=== PATIENT | female | born 1970 | race Two or more races ===

== ENCOUNTER 2016-12-31 07:20 | Emergency (ER) | payer BC, OTHER ==
--- NOTE | ~2016-12-31 | CR72 ---
[facility] A Service of [facility] RADIOLOGY TEXT RESULTS PATIENT: ALANNA KILGORE LOCATION: [facility] : 70 UNIT #: [id number] AGE: [address]: Lenin Forrest MD SEX: F ORDER DR: [id number] [facility] [address] [place], [place] [address] [id number] E MR#: [id number] Acc #: [id number] NAME: ALANNA KILGORE : 1970 SEX: F STUDY DATE/TIME: 12/31/2016 7:32 UNIT: [facility] ROOM: STUDY DESCRIPTION: CR Chest Single View Portable Attending Physician: Michael Forrest M.D. Ordering Physician: Ed Luis Rubin M.D. Primary Care Physician: Fabio Gordon M.D. MEDICAL IMAGING REPORT This report is preliminary unless electronic signature is present EXAM Single-view of the chest dated 12/31/2016 COMPARISON Chest 2 views dated 05/15/2010. HISTORY Shortness of air for 1 day. FINDINGS A single view of the chest was obtained. No patchy dense consolidation, pleural effusion, or pneumothorax. Mild prominence of the bronchovascular markings is probably better seen due to the technique. Minimal congestion cannot be completely excluded clinically. Heart is of normal size. Bones are unremarkable except for mild degenerative changes in the thoracic spine. Dictated by... Aaliyah Armenta M.D. THIS IS AN ELECTRONICALLY VERIFIED REPORT Aaliyah Armenta M.D. at 12/31/2016 3:49 PM CPR/aa TD: 12/31/2016 08:46 JOB #: [id number] MEDICAL IMAGING REPORT Page 1 of 1 COPY
--- NOTE | ~2016-12-31 | EKG ---
PATIENT: ALANNA KILGORE UNIT #: [id number] Ventricular Rate: 93 BPM Atrial Rate: 93 BPM P-R Interval: 122 ms QRS Duration: 74 ms Q-T Interval: 368 ms QTC Calculation(Bezet): 457 ms P [place]: 62 degrees Calculated R [place]: 40 degrees Calculated T [place]: 21 degrees Diagnosis Line: Normal sinus rhythm Diagnosis Line: Normal ECG Diagnosis Line: No previous ECGs available Diagnosis Line: Confirmed by ROSIE GALAN MD ([id number]) on Diagnosis Line: 12/31/2016 9:35:42 PM INTERPRETING MD: BENITO
--- NOTE | ~2016-12-31 | CT16 ---
[facility] A Service of [facility] RADIOLOGY TEXT RESULTS PATIENT: ALANNA KILGORE LOCATION: [facility] : 70 UNIT #: [id number] AGE: [address]: Lenin Forrest MD SEX: F ORDER DR: [id number] [facility] [address] [place], [place] [address] [id number] E MR#: [id number] Acc #: [id number] NAME: ALANNA KILGORE : 1970 SEX: F STUDY DATE/TIME: 12/31/2016 9:38 UNIT: [facility] ROOM: STUDY DESCRIPTION: CT Angio Chest for PE Attending Physician: Michael Forrest M.D. Ordering Physician: Michael Forrest M.D. Primary Care Physician: Fabio Gordon M.D. MEDICAL IMAGING REPORT This report is preliminary unless electronic signature is present EXAM CTA chest INDICATION Chest pain, shortness of air, upper back pain for 2 days. Elevated D-dimer. TECHNIQUE CT angiography of the chest utilizing 80 mL Isovue-370 IV contrast. Coronal 3-D MIP reconstructions and standard sagittal reconstructions were obtained. This CT exam was performed with one or more of the following radiation dose reduction techniques: automatic exposure control, adjustment of mA and/or kV according to patient size, and iterative reconstruction. COMPARISON Chest radiograph 12/31/[address] chest 09/10/2006. FINDINGS No pulmonary embolus. No thoracic aortic aneurysm or dissection. There are some ground-glass opacities in the perihilar regions of both lungs, predominately in the lower lobes. Patient also has small bilateral pleural effusions and some increased interstitial thickening. The overall constellation of findings is most supportive for mild interstitial edema and congestive heart failure. Central airways are patent. There is borderline enlargement of the main pulmonary artery measuring 3.2 cm. No pericardial effusion. There is a benign cyst in the superior right kidney. No hydronephrosis. IMPRESSION [facility] A Service of [facility] RADIOLOGY TEXT RESULTS PATIENT: ALANNA KILGORE LOCATION: [facility] : 70 UNIT #: [id number] AGE: [address]: Lenin Forrest MD SEX: F ORDER DR: 1. Negative for pulmonary embolus. 2. Perihilar ground-glass densities, mild interstitial thickening, and small bilateral pleural effusions. The constellation of findings suggests mild interstitial edema and congestive heart failure. Atypical pneumonia is considered less likely. Dictated by... Irvin Pérez M.D. THIS IS AN ELECTRONICALLY VERIFIED REPORT Irvin Pérez M.D. at 12/31/2016 11:32 AM Walt TD: 12/31/2016 10:52 JOB #: [id number] MEDICAL IMAGING REPORT Page 1 of 1 COPY
[~2016-12-31 07:20] MED LIST: ALBUTEROL17 G1 IH; CLARITIN10 MG PO; DESYREL100 MG PO; FLEXERIL PO; IBUPROFEN PO; KCL PO; ORUDIS75 M1 PO; PERCOCET PO; VICODIN 5/500 T1 TAB PO; ZESTORETIC 10/11 TAB PO
[2016-12-31 08:03] LABS: POC - CKMB <1.0 ng/mL (0.0-7.9); POC - TROPONIN <0.05 ng/mL (<=0.05)
[2016-12-31 08:07] LABS: BASOPHIL# 0.1 X10e3 (0-0.3); BASOPHIL% 0.6 % (0-2.5); EOSINOPHIL# 0.3 X10e3 (0-0.7); EOSINOPHIL% 2.4 % (0.0-7.0); HEMATOCRIT 26.4 % (35.0-45.0); HEMOGLOBIN 8.1 gm/dL (12.0-16.0); LYMPHOCYTE# 1.5 X10e3 (1.0-3.5); LYMPHOCYTE% 13.8 % (17.0-45.0); MEAN CELL VOLUME 67.4 FL (83-96); MEAN CORPUSCULAR HEMOGLOBIN 20.7 PG (28-34); MEAN CORPUSCULAR HGB CONC 30.8 g/dL (30-36); MEAN PLATELET VOLUME 8.3 FL (6.5-11.5); MONOCYTE# 0.9 X10e3 (0-1.0); MONOCYTE% 7.8 % (3.0-12.0); NEUTROPHIL# 8.5 X10e3 (1.5-7.1); NEUTROPHIL% 75.4 % (40-75); PLATELET COUNT 314 X10e3 (140-420); RED BLOOD COUNT 3.92 X10e (3.90-5.30); RED CELL DISTRIBUTION WIDTH 18.3 % (11.0-15.5); WHITE BLOOD COUNT 11.3 X10e3 (4.0-10.5)
[2016-12-31 08:11] LABS: DIFF IND NO
[2016-12-31 08:16] LABS: INFLUENZA A NEG (NEG); INFLUENZA B NEG (NEG)
[2016-12-31 08:29] LABS: ALBUMIN SERUM 2.9 g/dL (3.5-5.0); BILIRUBIN, DIRECT 0.1 mg/dL (0.0-0.2); BILIRUBIN,INDIRECT 0.7 mg/dL (0.0-0.9); BILIRUBIN,TOTAL 0.8 mg/dL (0.2-2.0); BUN/CREATININE RATIO 11.25; CALCIUM SERUM 8.2 mg/dL (8.4-10.2); CREATININE SERUM 0.8 mg/dL (0.6-1.4); GLOM FILT RATE Estimated 88.5 mL/min (>60); POTASSIUM 3.8 mmol/L (3.5-5.1); PROTEIN TOTAL SERUM 6.6 g/dL (6.0-8.3)
[2016-12-31 11:55] LABS: URINE SOURCE CLEAN CATCH
[2016-12-31 12:06] LABS: URINE APPEARANCE CLEAR; URINE BILIRUBIN NEG (NEG); URINE BLOOD NEG (NEG); URINE COLOR YELLOW; URINE GLUCOSE NEG (NEG); URINE KETONE NEG (NEG); URINE LEUKOCYTE ESTERASE NEG (NEG); URINE NITRATE NEG (NEG); URINE PROTEIN NEG (NEG); URINE SPECIFIC GRAVITY 1.005 (1.003-1.035); URINE UROBILINOGEN 0.2 MG/DL (NEG)
[2016-12-31 12:18] LABS: CULTURE INDICATED? NO
== END 2016-12-31 13:05 | disposition home or self-care (01) ==
LOC: CED 07:20
PROVIDERS: Emergency Medicine
DX: D64.9 Anemia, unspecified (principal); R05 Cough; R06.02 Shortness of breath; R09.81 Nasal congestion; E78.5 Hyperlipidemia, unspecified; I10 Essential (primary) hypertension; Z86.73 Personal history of transient ischemic attack (TIA), and cerebral infarction without residual deficits; Z88.0 Allergy status to penicillin
CPT/HCPCS: 36415; 71010; 71275; 80048; 80076; 81003; 82553; 83880; 84484; 85025; 85379; 87804; 93005; 99284; Q9967

== ENCOUNTER 2017-04-10 09:40 | Emergency (ER) | payer BC ==
--- NOTE | ~2017-04-10 | EKG ---
PATIENT: ALANNA KILGORE UNIT #: [id number] Ventricular Rate: 62 BPM Atrial Rate: 62 BPM P-R Interval: 142 ms QRS Duration: 76 ms Q-T Interval: 448 ms QTC Calculation(Bezet): 454 ms P [place]: 59 degrees Calculated R [place]: 39 degrees Calculated T [place]: 48 degrees Diagnosis Line: Normal sinus rhythm Diagnosis Line: Normal ECG Diagnosis Line: When compared with ECG of 31-DEC-2016 07:56, Diagnosis Line: Vent. rate has decreased BY 31 BPM Diagnosis Line: Nonspecific T wave abnormality no longer evident Diagnosis Line: in Inferior leads Diagnosis Line: Confirmed by BECCA MCKOY MD ([id number]) on Diagnosis Line: 04/12/2017 8:55:36 AM INTERPRETING MD: LEELEE COVINGTON
--- NOTE | ~2017-04-10 | CR72 ---
[facility] A Service of [facility] RADIOLOGY TEXT RESULTS PATIENT: ALANNA KILGORE LOCATION: [facility] : 70 UNIT #: [id number] AGE: [address]: Luis F Wesley MD SEX: F ORDER DR: [id number] [facility] [address] [place], [place] [address] [id number] E MR#: [id number] Acc #: [id number] NAME: ALANNA KILGORE : 1970 SEX: F STUDY DATE/TIME: 04/10/2017 10:18 UNIT: [facility] ROOM: STUDY DESCRIPTION: CR Chest Single View Portable Attending Physician: Luis F Wesley M.D. Ordering Physician: [id number] Anayeli Wesley Primary Care Physician: Fabio Gordon M.D. MEDICAL IMAGING REPORT This report is preliminary unless electronic signature is present EXAM Portable chest HISTORY Chest pain starting today with shortness of air. COMPARISON 12/31/2016 FINDINGS This portable view of the chest shows no active disease. The heart size and vascularity are normal. The lungs are clear and the bones are normal. Dictated by... Nam Ramirez M.D. THIS IS AN ELECTRONICALLY VERIFIED REPORT Nam Ramirez M.D. at 04/11/2017 9:35 PM ROSIE/gordon TD: 04/11/2017 00:20 JOB #: [id number] MEDICAL IMAGING REPORT Page 1 of 1 COPY
[2017-04-10 11:03] LABS: BASOPHIL# 0.1 X10e3 (0-0.3); BASOPHIL% 0.8 % (0-2.5); EOSINOPHIL# 0.1 X10e3 (0-0.7); EOSINOPHIL% 0.8 % (0.0-7.0); HEMATOCRIT 28.6 % (35.0-45.0); HEMOGLOBIN 9.1 gm/dL (12.0-16.0); LYMPHOCYTE# 1.3 X10e3 (1.0-3.5); LYMPHOCYTE% 16.7 % (17.0-45.0); MEAN CORPUSCULAR HEMOGLOBIN 22.3 PG (28-34); MEAN CORPUSCULAR HGB CONC 31.8 g/dL (30-36); MEAN PLATELET VOLUME 7.7 FL (6.5-11.5); MONOCYTE# 0.6 X10e3 (0-1.0); MONOCYTE% 7.8 % (3.0-12.0); NEUTROPHIL# 5.6 X10e3 (1.5-7.1); NEUTROPHIL% 73.9 % (40-75); PLATELET COUNT 365 X10e3 (140-420); RED BLOOD COUNT 4.09 X10e (3.90-5.30); RED CELL DISTRIBUTION WIDTH 17.2 % (11.0-15.5); WHITE BLOOD COUNT 7.6 X10e3 (4.0-10.5)
[2017-04-10 11:05] LABS: POC - CKMB <1.0 ng/mL (0.0-7.9); POC - TROPONIN <0.05 ng/mL (<=0.05)
[2017-04-10 11:13] LABS: PROTHROMBIN TIME (PATIENT) 10.5 SECONDS (10.0-11.7)
[2017-04-10 11:14] LABS: DIFF IND NO
[2017-04-10 11:39] LABS: ALBUMIN SERUM 3.4 g/dL (3.5-5.0); BILIRUBIN, DIRECT 0.1 mg/dL (0.0-0.2); BILIRUBIN,INDIRECT 0.9 mg/dL (0.0-0.9); CALCIUM SERUM 8.5 mg/dL (8.4-10.2); CREATININE SERUM 0.8 mg/dL (0.6-1.4); GLOM FILT RATE Estimated 88.5 mL/min (>60); PROTEIN TOTAL SERUM 7.2 g/dL (6.0-8.3)
== END 2017-04-10 12:35 | disposition home or self-care (01) ==
LOC: CED 09:40
PROVIDERS: Emergency Medicine
DX: R06.02 Shortness of breath (principal); M54.9 Dorsalgia, unspecified; E87.6 Hypokalemia; I10 Essential (primary) hypertension; Z86.73 Personal history of transient ischemic attack (TIA), and cerebral infarction without residual deficits; Z88.0 Allergy status to penicillin
CPT/HCPCS: 36415; 71010; 80048; 80076; 82553; 83605; 83880; 84484; 84703; 85025; 85379; 85610; 87040; 93005; 96374; 99285; J1885

== ENCOUNTER 2017-05-24 16:03 | Emergency (ER) | payer BC ==
[~2017-05-24] VITALS: Ht 165.1 cm; Wt 98.9 kg
--- NOTE | ~2017-05-24 | CT4 ---
[facility] A Service of [facility] RADIOLOGY TEXT RESULTS PATIENT: ALANNA KILGORE LOCATION: [facility] : 70 UNIT #: [id number] AGE: [address]: Skylar Guerrero MD SEX: F ORDER DR: [id number] [facility] [address] [place], [place] [address] [id number] E MR#: [id number] Acc #: [id number] NAME: ALANNA KILGORE : 1970 SEX: F STUDY DATE/TIME: 05/24/2017 20:25 UNIT: [facility] ROOM: STUDY DESCRIPTION: CT Abd and Pelv Wo Cont Attending Physician: Skylra Guerrero M.D. Ordering Physician: Skylar Guerrero M.D. Primary Care Physician: Fabio Gordon M.D. MEDICAL IMAGING REPORT This report is preliminary unless electronic signature is present EXAM CT abdomen and pelvis without contrast. HISTORY Back pain and pelvic pain today. Low abdomen pain. TECHNIQUE CT abdomen and pelvis was performed without contrast This CT exam was performed with one or more of the following radiation dose reduction techniques: automatic exposure control, adjustment of mA and/or kV according to patient size, and iterative reconstruction. FINDINGS CT abdomen. The liver, spleen, pancreas, left kidney, and adrenal glands are normal. Incidental 2 cm cyst in the anterior mid-right kidney. Gallbladder is contracted. No urinary obstruction or bowel obstruction. Normal appendix. CT pelvis. The uterus is diffusely enlarged, and is similar to 08/13/2016 CT, measuring close to 11.1 cm x 10.7 cm in AP and transverse dimensions and nearly 12 cm in craniocaudal dimension. This could be secondary to multiple fibroids, but evaluation of uterus is limited without contrast. No adnexal abnormality. No free fluid. Urinary bladder is unremarkable. IMPRESSION 1. No acute finding. 2. Normal appendix. 3. No urinary obstruction or bowel obstruction. 4. Diffuse enlargement of the uterus is similar to CT 08/13/2016. This could be secondary to uterine fibroids. [facility] A Service of [facility] RADIOLOGY TEXT RESULTS PATIENT: ALANNA KILGORE [id number] 70 UNIT #: [id number] AGE: [address]: Skylar Guerrero MD SEX: F ORDER DR: Dictated by... Best Guzman M.D. THIS IS AN ELECTRONICALLY VERIFIED REPORT Best Guzman M.D. at 05/25/2017 2:31 PM DFL/hayden TD: 05/25/2017 13:38 JOB #: [id number] MEDICAL IMAGING REPORT Page 1 of 1 COPY
[2017-05-24 17:03] LABS: BASOPHIL% 0.7 % (0-2.5); EOSINOPHIL% 0.2 % (0.0-7.0); HEMATOCRIT 32.2 % (35.0-45.0); HEMOGLOBIN 10.2 gm/dL (12.0-16.0); LYMPHOCYTE# 1.5 X10e3 (1.0-3.5); LYMPHOCYTE% 23.2 % (17.0-45.0); MEAN CELL VOLUME 65.4 FL (83-96); MEAN CORPUSCULAR HEMOGLOBIN 20.7 PG (28-34); MEAN CORPUSCULAR HGB CONC 31.6 g/dL (30-36); MEAN PLATELET VOLUME 8.4 FL (6.5-11.5); MONOCYTE# 0.5 X10e3 (0-1.0); MONOCYTE% 7.4 % (3.0-12.0); NEUTROPHIL# 4.5 X10e3 (1.5-7.1); NEUTROPHIL% 68.5 % (40-75); PLATELET COUNT 404 X10e3 (140-420); RED BLOOD COUNT 4.92 X10e (3.90-5.30); WHITE BLOOD COUNT 6.5 X10e3 (4.0-10.5)
[2017-05-24 17:10] LABS: DIFF IND NO
[2017-05-24 17:27] LABS: ALBUMIN SERUM 3.8 g/dL (3.5-5.0); BILIRUBIN, DIRECT 0.1 mg/dL (0.0-0.2); BILIRUBIN,INDIRECT 0.8 mg/dL (0.0-0.9); BILIRUBIN,TOTAL 0.9 mg/dL (0.2-2.0); CALCIUM SERUM 9.3 mg/dL (8.4-10.2); CREATININE SERUM 0.9 mg/dL (0.6-1.4); GLOM FILT RATE Estimated 76.7 mL/min (>60); POTASSIUM 3.2 mmol/L (3.5-5.1); PROTEIN TOTAL SERUM 7.9 g/dL (6.0-8.3)
[2017-05-24 19:08] LABS: URINE SOURCE CLEAN CATCH
[2017-05-24 19:21] LABS: URINE APPEARANCE CLEAR; URINE BILIRUBIN NEG (NEG); URINE BLOOD 2+ (NEG); URINE COLOR YELLOW; URINE GLUCOSE NEG (NEG); URINE KETONE NEG (NEG); URINE LEUKOCYTE ESTERASE NEG (NEG); URINE NITRATE NEG (NEG); URINE PROTEIN NEG (NEG); URINE SPECIFIC GRAVITY 1.027 (1.003-1.035); URINE UROBILINOGEN 0.2 MG/DL (NEG)
[2017-05-24 19:23] LABS: CULTURE INDICATED? NO; URBCS1 AUWI 0-2 /[HPF] (0-2); URINE BACTERIA AUWI NEG (NEGATIVE); URINE SQUAMOUS EPITHELIAL CELL OCC /[HPF]; UWBCS1 AUWI 0-2 (0-5)
== END 2017-05-24 22:08 | disposition home or self-care (01) ==
LOC: CED 16:03
DX: R10.9 Unspecified abdominal pain (principal); M54.5 Low back pain; I10 Essential (primary) hypertension; E78.5 Hyperlipidemia, unspecified; Z86.73 Personal history of transient ischemic attack (TIA), and cerebral infarction without residual deficits; Z88.0 Allergy status to penicillin
CPT/HCPCS: 36415; 74176; 80048; 80076; 81003; 83690; 84703; 85025; 99284